=== PATIENT | male | born 2000 | race Caucasian/White ===

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

== ENCOUNTER 2024-09-04 08:00 | Outpatient (RCR) | payer MEDICAID, SELFPAY ==
--- NOTE | 2024-08-20 15:12 | HMH.OTOPEV ---
OT Inpatient Evaluation Rehab OT Outpatient Eval Start: 08/20/24 14:54 Freq: Status: Active Protocol: [facility] 08/20/24 14:55 [facility] (Rec: 08/20/24 15:11 [facility] [id number] E-signed By Lucille Arshad, OT Outpatient Therapy Subjective History Subjective History Pt is a 23 year old male who reports to therapy for initial evaluation to bilateral wrists. Pt reports he has had pain on and off for 7-8 years with both of his wrists. According to patient, his right wrist is the worst. He is right hand dominant. Most of his pain is when he actively moves wrists into extension. Most of his pain is on the lateral (ulnar) aspect of both wrists around the Triangular Fibrocartilage Complex (TFCC) and the Distal radioulnar joint (DRUJ). Pt also has consistent popping and instability on ulnar side of the wrist. Pt is unable to complete recreational activities or job duties that require constant repetitive motion at bilateral hands and wrists due to pain. Pt demonstrates with decreased AROM in extension and weakness throughout both wrists and decreased school physical therapist strength on right side. Pt will continue to be seen for OT services twice a week in order to address all deficits. STG R hand school physical therapist strength: 70 lbs LTG R hand school physical therapist strength: 75 lbs New diagnosis of cancer in past 12 No months? Chief Complaint Pain,Gives out/Unstable, Weakness,Decreased Camp Head Counselor Strength Symptom Type Ache,Throb,Sharp,Dull Symptoms Relieved By Rest/Positioning Symptoms Aggravated By Physical Activity,Twisting, Lifting Prior Functional Limitations None Current Functional Limitations Reaching,Lifting,Housework, Sleeping,Recreation Activity Symptom Description Intermittent,Activity Dependent Level of pain today (0-10) 2 Pain scale - at its best (0-10) 0 Pain scale - at its worst (0-10) 9 Wrist/Hand Eval Wrist Range of Motion Right Wrist Extension Active Range of Motion ( 60 degrees) Wrist Flexion Active Range of Motion ( 80 degrees) Wrist Radial Deviation Active Range of 25 Motion (degrees) Wrist Ulnar Deviation Active Range of 30 Motion (degrees) Forearm Supination Active Range of 90 Motion (degrees) Forearm Pronation Active Range of Motion 90 (degrees) Left Wrist Extension Active Range of Motion ( 60 degrees degrees) Wrist Flexion Active Range of Motion ( 80 degrees degrees) Wrist Radial Deviation Active Range of 25 degrees Motion (degrees) Wrist Ulnar Deviation Active Range of 30 degrees Motion (degrees) Forearm Supination Active Range of 90 Motion (degrees) Forearm Pronation Active Range of Motion 90 (degrees) Wrist Manual Muscle Testing Right Wrist Extension Strength Grade 3+ Fair+ Wrist Flexion Strength Grade 3+ Fair+ Wrist Radial Deviation Strength Grade 3+ Fair+ Wrist Ulnar Deviation Strength Grade 3+ Fair+ Forearm Supination Strength Grade 3+ Fair+ Forearm Pronation Strength Grade 3+ Fair+ Left Wrist Extension Strength Grade 3+ Fair+ Wrist Flexion Strength Grade 3+ Fair+ Wrist Radial Deviation Strength Grade 3+ Fair+ Wrist Ulnar Deviation Strength Grade 3+ Fair+ Forearm Supination Strength Grade 3+ Fair+ Forearm Pronation Strength Grade 3+ Fair+ Camp Head Counselor/Pinch Strength Right Camp Head Counselor Strength Measurement (lbs) 63 Left Camp Head Counselor Strength Measurement (lbs) 70 QuickDASH Activities Please rate your ability to do the following activities in the last week by selecting the number below the appropriate response. 1. Open a tight or new jar. No difficulty 2. Do heavy rock drill operator (e.g., wash Mild difficulty sutton, floors). 3. Carry a shopping bag or briefcase. Mild difficulty 4. Wash your back. No difficulty 5. Use a knife to cut food. No difficulty 6. Recreational activities in which you Moderate difficulty take some force or impact through your arm, shoulder, or hand (e.g., golf, hammering, tennis, etc.). 7. During the past week, to what extent Slightly has your arm, shoulder or hand problem interfered with your normal social activities with family, friends, neighbors or groups? 8. During the past week, were you Slightly limited limited in your work or other regular daily activites as a result of your arm, shoulder or hand problem? 9. Arm, shoulder or hand pain. Mild 10. Tingling (pins and needles) in your None arm, shoulder or hand. 11. During the past week, how much No difficulty difficulty have you had sleeping because of the pain in your arm, shoulder or hand? Quick DASH 18 OT Outpatient Assessment Impairments Problems/Impairments Palpation Tenderness,Impaired Range of Motion,Impaired Strength,Impaired Endurance, Impaired Lifting,Impaired Household Care,Impaired Recreational Activities, Impaired Work Activities, Subjective C/O Pain Prognosis Rehab Potential Good Clinical Impression Consistent with Diagnosis Yes Short Term Goals Number of Weeks 3 Increase Range of Motion Yes: B/L wrist extension: 65 degrees Increase Strength Yes: B/L wrist strength: 4-/5 throughout Increase Endurance Yes: Pt will tolerate B/L wrist exercises for ~10 minutes prior to rest. Decrease Subjective C/O Pain Yes: 610 at worst Patient to be Ind w/ HEP Yes: AAROM/AROM exercises; yellow theraputty Improve Quick Dash Score Yes: Activities: 15 or below Precinct Police Captain Goals Number of Weeks 6 Increase Range of Motion Yes: B/L wrist extension: 70 degrees Increase Strength Yes: 4/5 throughout B/L wrist strength Increase Endurance Yes: Pt will tolerate B/L wrist exercises for ~20 minutes prior to rest. Decrease Subjective C/O Pain Yes: 10 at worst Patient to be Ind w/ Advanced HEP Yes: Advanced strengthening exercises Improve Quick Dash Score Yes: Activities: 10 or below Outpatient Therapy Plan of Care Treatment Plan May Include Therapeutic Exercise Including Home Yes Exercise Program Manual Therapy Techniques Yes Neuromuscular Re-education Yes Thermal Modalities Yes Electrical Stimulation Yes Ultrasound/Phonophoresis Yes Iontophoresis Yes Orthotics/Bracing/Splinting Yes Massage Yes Eval/Re-Eval Yes Frequency Times per week 2 Duration Number of Weeks 6 Addendums This patient is a candidate for social No or vocational rehab? Patient/Guardian verbally acknowledges Yes understanding of treatment program and consents to further treatment? Patient/Guardian verbally acknowledges Yes understanding of diagnosis, prognosis and goals for treatment? Eval Complexity OT Charge 43768 - Moderate Complexity Shoulder/Elbow Eval Shoulder Objective Measurements Elbow Objective Measurements PHYSICIAN CERTIFICATION: I certify the specified therapy services for Syd Andersen are required, authorized, and reviewed every 30 days.
== END 2024-09-04 23:59 | disposition home or self-care (01) ==
LOC: OT 08:00
PROVIDERS: Visit Provider Nurse Practitioner Family
DX: M25.531 Pain in right wrist (principal); M25.532 Pain in left wrist
CPT/HCPCS: 97014; 97110; 97140; 97166; G0283

== ENCOUNTER 2024-09-18 11:00 | Outpatient (RCR) | payer MEDICAID, SELFPAY ==
--- NOTE | 2024-09-17 11:59 | HMH.RHREAS ---
Rehab Reassessment Rehab OP Re-assessment Start: 09/16/24 14:22 Freq: Status: Active Protocol: Document 09/16/24 11:31 LENIN (Rec: 09/17/24 11:38 [facility] [id number]) E-signed By Summer Galvez, OT QuickDASH Activities Please rate your ability to do the following activities in the last week by selecting the number below the appropriate response. 1. Open a tight or No difficulty new jar. 2. Do heavy Severe difficulty guest services officer (e. g., wash sutton, floors). 3. Carry a shopping Mild difficulty bag or briefcase. 4. Wash your back. Severe difficulty 5. Use a knife to No difficulty cut food. 6. Recreational Moderate difficulty activities in which you take some force or impact through your arm, shoulder, or hand (e.g., golf, hammering, tennis, etc.). 7. During the past Not at all week, to what extent has your arm, shoulder or hand problem interfered with your normal social activities with family, friends , neighbors or groups? 8. During the past Not limited at all week, were you limited in your work or other regular daily activites as a result of your arm, shoulder or hand problem? 9. Arm, shoulder or Mild hand pain. 10. Tingling (pins Mild and needles) in your arm, shoulder or hand. 11. During the past Mild difficulty week, how much difficulty have you had sleeping because of the pain in your arm, shoulder or hand? 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 Pt reports no pain at rest; 3-4/10 with activities. Objective Objective Notes Reassessment completed on this date following tx. Pt tolerated well. Bilateral wrist strength: 4-/5 throughout. Bilateral wrist extension: 60 degrees left; 58 degrees right ind with basic HEP QuickDash 23 Pain: 3-4/10 Assessment Progress Assessment Slower Than Expected Assessment Notes Pt has been participating with good effort during OT sessions. He is making slow progress toward established goals. He is changing jobs and will no longer be working at [employer] performing repetitive tasks. Instead he will be selling phones, which is expected to allow wrists opportunity to rest and greater progress is anticipated. Pt reports no c/o pain upon arrival and when at rest. Max pain reported today during WB/wrist extension B wrists, 4-5/10; resolved quickly with cessation of activity. Pt ROM, strength and pain improved since date of evaluation. He will benefit from continued OT services to address the aforementioned areas of deficit and functional limitation. Patient goals met 2, 3, 4, 5 Goals Not Met 1, 6 Revised Goals 1. Increase B wrist extension to 65 degrees 2. Increase B wrist strength to 4/5 grossly. 3. Pt will tolerate 20' sustained TE/TA prior to rest. 4. Improve QuickDash score to 15 or below 5. Independent with advance HEP. Time and Billing Re-Eval Time 15 Re-Eval Billing 0 Units Charge for OT No reassessment? PHYSICIAN CERTIFICATION: I certify the specified therapy services for Syd Andersen are required, authorized, and reviewed every 30 days.
== END 2024-09-18 23:59 | disposition home or self-care (01) ==
LOC: OT 11:00
PROVIDERS: Visit Provider Nurse Practitioner Family
DX: M25.531 Pain in right wrist (principal); M25.532 Pain in left wrist
CPT/HCPCS: 97110

== ENCOUNTER 2024-12-22 09:35 | Outpatient (CLI) | payer OTHER, MEDICAID, SELFPAY ==
[2024-12-22 16:17] LABS: Influenza A, PCR Not Detected (NotDetected); Influenza B, PCR Not Detected (NotDetected)
[2024-12-23 11:48] LABS: Coronavirus 19, PCR Detected (NotDetected)
== END 2024-12-22 23:59 ==
LOC: LAB.DROPOF 12-23 09:44
PROVIDERS: PCP Nurse Practitioner; Visit Provider Nurse Practitioner
DX: J06.9 Acute upper respiratory infection, unspecified (principal)
CPT/HCPCS: 87631